=== PATIENT | male | born 1945 | race Caucasian/White ===

== ENCOUNTER 2021-01-16 19:01 | Emergency (ER) | payer MEDICARE, BC ==
--- NOTE | 2021-01-16 19:49 | EDM.PDOC ---
ED HPI GENERAL MEDICAL PROBLEM - General Chief Complaint: Cardiovascular Problem Stated Complaint: POSSIBLE AFIB Time Seen by Provider: 01/16/21 19:37 Source of Information: Reports: Patient History Limitations: Reports: No Limitations - History of Present Illness INITIAL COMMENTS - FREE TEXT/NARRATIVE: Scotty is a 75-year-old male presenting to the ED for evaluation of atrial fibrillation. The patient has a history of paroxysmal atrial fibrillation and is on Xarelto. He states that he was checking his blood pressure tonight and he noticed that his heart rate was in the 120s and felt irregular prompting him to come in for evaluation. He denies any other symptoms including lightheadedness, shortness of breath, chest pain, diaphoresis, nausea or vomiting. Patient does report that he took his blood pressure this morning and it was normal but he was not clear on whether or not his heart rate was normal at that time. 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 The patient has been on Xarelto for the last 5 years since his previous episode of atrial fibrillation. denies pain Pain Score (Numeric/FACES): 0 - Related Data Allergies Allergy/AdvReac Type Severity Reaction Status Date / Time No Known Allergies Allergy Verified 01/16/21 19:26 Home Meds: Home Meds Diltiazem HCl [Diltiazem 24Hr ER] 120 mg PO DAILY 30 Days #30 cap.er.24h 01/16/21 [Rx] Ergocalciferol (Vitamin D2) [Vitamin D2] 1.25 mg PO WEEKLY 01/16/21 [History] Labetalol [Normodyne] 200 mg PO BID 01/16/21 [History] Lactobacillus Acidophilus [Probiotic Acidophilus] 3 tab PO DAILY 01/16/21 [History] NIFEdipine [Nifedipine ER] 60 mg PO BEDTIME 01/16/21 [History] Rivaroxaban [Xarelto] 20 mg PO BEDTIME 01/16/21 [History] Valsartan 160 mg PO DAILY 01/16/21 [History] Zinc Gluconate [Zinc] 15 mg PO DAILY 01/16/21 [History] ED ROS GENERAL - Review of Systems Review Of Systems: See Below Constitutional: Reports: No Symptoms HEENT: Reports: No Symptoms Respiratory: Reports: No Symptoms Cardiovascular: Reports: Lightheadedness, Palpitations Endocrine: Reports: No Symptoms GI/Abdominal: Reports: No Symptoms : Reports: No Symptoms Musculoskeletal: Reports: No Symptoms Skin: Reports: No Symptoms Neurological: Reports: No Symptoms Psychiatric: Reports: No Symptoms Hematologic/Lymphatic: Reports: No Symptoms Immunologic: Reports: No Symptoms ED EXAM, GENERAL - Physical Exam Exam: See Below Exam Limited By: No Limitations General Appearance: Alert, WD/WN, No Apparent Distress Eye Exam: Bilateral Eye: EOMI, PERRL Head: Atraumatic, Normocephalic Neck: Normal Inspection, Supple, Non-Tender, Full Range of Motion. No: Carotid Bruit Respiratory/Chest: No Respiratory Distress, Lungs Clear, Normal Breath Sounds Cardiovascular: Normal Peripheral Pulses, No Edema, Tachycardia, Irregularly Irregular Peripheral Pulses: 2+: Radial (L), Radial (R) GI/Abdominal: Normal Bowel Sounds, Soft, Non-Tender Extremities: Normal Inspection, Normal Range of Motion, Non-Tender, No Pedal Edema Neurological: Alert, Oriented, Normal Cognition, No Motor/Sensory Deficits Psychiatric: Normal Affect, Normal Mood Skin Exam: Warm, Dry, Intact, Normal Color Lymphatic: No Adenopathy #1 Interpretation EKG Date: 01/16/21 Time: 19:21 Rhythm: A-Fib Rate (Beats/Min): 122 P-Wave: Absent QRS: Normal ST-T: Normal QT: Normal Comparison: NA - No Prior EKG Course - Vital Signs Last Recorded V/S: Last Vital Signs Temp 36.4 C 01/16/21 19:27 Pulse 117 H 01/16/21 20:24 Resp 13 01/16/21 20:24 BP 123/73 01/16/21 20:24 Pulse Ox 96 01/16/21 20:24 - Orders/Labs/Meds Orders: Active Orders 24 hr Category Date Time Status EKG Documentation Completion [RC] ASDIRECTED Care 01/16/21 19:07 Active Sodium Chloride 0.9% [Saline Flush] Med 01/16/21 20:04 Active 10 ml FLUSH ASDIRECTED PRN Saline Lock Insert [OM.PC] Routine Oth 01/16/21 20:04 Ordered EKG 12 Lead [EK] Routine Ther 01/16/21 19:03 Ordered Medication Orders Sodium Chloride (Sodium Chloride 0.9% 10 Ml Syringe) 10 ml FLUSH ASDIRECTED PRN PRN Reason: Keep Vein Open Last Admin: 01/16/21 20:13 Dose: 10 ml Documented by: CHANG Labs: Laboratory Tests 01/16/21 01/16/21 01/16/21 Range/Units 19:22 19:22 19:22 WBC 9.4 (4.5-11.0) K/uL RBC 4.62 (4.30-5.90) M/uL Hgb 15.2 H (12.0-15.0) g/dL Hct 44.2 (40.0-54.0) % MCV 96 (80-98) fL MCH 33 H (27-31) pg MCHC 34 (32-36) % Plt Count 226 (150-400) K/uL Neut % (Auto) 61 (36-66) % Lymph % (Auto) 24 (24-44) % Foster % (Auto) 13 H (2-6) % Eos % (Auto) 1 L (2-4) % Baso % (Auto) 2 H (0-1) % PT 12.3 H (9.5-12.0) sec INR 1.13 (0.80-1.20) APTT 30.7 (27.0-36.0) sec Sodium 141 (140-148) mmol/L Potassium 5.2 (3.6-5.2) mmol/L Chloride 106 (100-108) mmol/L Carbon Dioxide 25 (21-32) mmol/L Anion Gap 10.4 (5.0-14.0) mmol/L BUN 30 H (7-18) mg/dL Creatinine 1.5 H (0.8-1.3) mg/dL Est Cr Clr Drug Dosing 43.86 mL/min Estimated GFR (MDRD) 46 L (>60) Glucose 87 (74-106) mg/dL Calcium 9.2 (8.5-10.1) mg/dL Total Bilirubin 0.4 (0.2-1.0) mg/dL AST 23 (15-37) U/L ALT 31 (12-78) U/L Alkaline Phosphatase 50 (46-116) U/L Troponin I < 0.017 (0.000-0.056) ng/mL Total Protein 7.4 (6.4-8.2) g/dL Albumin 3.8 (3.4-5.0) g/dL Globulin 3.6 H (2.3-3.5) g/dL Albumin/Globulin Ratio 1.1 L (1.2-2.2) TSH, Ultra Sensitive 1.581 (0.358-3.740) uIU/mL Meds: Medications Generic Name Dose Route Start Last Admin Trade Name Freq PRN Reason Stop Dose Admin Sodium Chloride 10 ml 01/16/21 20:04 01/16/21 20:13 Sodium Chloride 0.9% 10 Ml Syringe FLUSH 10 ml ASDIRECTED PRN Administration Keep Vein Open Discontinued Medications Generic Name Dose Route Start Last Admin Trade Name Freq PRN Reason Stop Dose Admin Diltiazem HCl 20 mg 01/16/21 20:04 01/16/21 20:28 Diltiazem 25 Mg/5 Ml Sdv IVPUSH 01/16/21 20:05 20 mg ONETIME ONE Administration - Re-Assessments/Exams Free Text/Narrative Re-Assessment/Exam: 01/16/21 21:32 he was established and the patient was given diltiazem 20 mg IV push with fairly rapid onset of reduction with heart rate begin between 70 and 82 bpm. Patient was observed for an hour but still remained in atrial fibrillation with his rate controlled. His blood pressure was suitable at 116/71. After over an hour his heart rate is gone up into the 90s and his blood pressure is 140/78 now. We will repeat the diltiazem 20 mg IV push to see if this helps convert him. If not, my plan is to put him on diltiazem ED 120 milligram and have him follow-up with his cvt rn or internal medicine doctor as you will likely need an echocardiogram and further evaluation. His blood work is unremarkable for any significant findings except for GFR of 46 and a creatinine of 1.5. This is a known entity and is followed by a insurance sales manager from [place] who has been managing his kidney function and hypertension. 01/16/21 22:03 patient underwent a second dose of diltiazem 20 mg IV push and again had a fairly rapid decrease in heart rate into the 50s and 60s. His blood pressure remained stable at 118/69. It still appears that he is in atrial fibrillation although his rate is well controlled at this point. My plan is to discharge him on Cardizem CD 120 mg daily. I had like him to follow-up with his primary care provider in [place] as you will likely need to have an echocardiogram and they can determine from that what area of cardiology may be needed to refer to. As the patient is relatively asymptomatic and already anticoagulated with Xarelto, I do not feel the need to hospitalize him. He did not convert with the 2 doses of diltiazem, however, he may still convert in the next 24 hours. We will continue rate control with the diltiazem until he follows up. Indications to return to the ED were discussed and the patient was suitable for discharge in satisfactory condition. Departure - Departure Time of Disposition: 22:58 Disposition: Home, Self-Care 01 Clinical Impression: Paroxysmal atrial fibrillation with RVR Instructions: Atrial Fibrillation, [id number] Referrals: PCP,None [Primary Care Provider] - Forms: ED Department Discharge Care Plan Goals: I am providing you with a prescription for diltiazem CD 120 mg daily. Please fill this in the morning and take 1 daily. This will provide you with rate control. I would recommend you follow-up with your power operator when you return to [place] as you will likely need to have an echocardiogram to further evaluate for the cause of atrial fibrillation. Your blood work today did not show any significant abnormalities except for your chronic kidney disease with your GFR being 46. Continue with the Xarelto as before. Return to the ED for evaluation should you develop any significant dizziness, lightheadedness, shortness of breath, or chest pain. Sepsis Event Note (ED) - Evaluation Sepsis Screening Result: No Definite Risk - Focused Exam Vital Signs: Vital Signs Temp Pulse Resp BP Pulse Ox 01/16/21 20:24 117 H 13 123/73 96 01/16/21 19:46 109 H 14 117/83 98 01/16/21 19:27 36.4 C 116 H 15 130/94 H 99 01/16/21 19:26 36.4 C 116 H 15 130/94 H 99 - Problem List & Annotations (1) Paroxysmal atrial fibrillation with RVR SNOMED Code(s): 0060779764 Code(s): I48.0 - PAROXYSMAL ATRIAL FIBRILLATION Status: Acute Priority: High Current Visit: Yes - Problem List Review Problem List Initiated/Reviewed/Updated: Yes - My Orders Last 24 Hours: My Active Orders 01/16/21 19:03 EKG 12 Lead [EK] Routine 01/16/21 19:07 EKG Documentation Completion [RC] ASDIRECTED 01/16/21 20:04 Sodium Chloride 0.9% [Saline Flush] 10 ml FLUSH ASDIRECTED PRN Saline Lock Insert [OM.PC] Routine - Assessment/Plan Last 24 Hours: My Active Orders 01/16/21 19:03 EKG 12 Lead [EK] Routine 01/16/21 19:07 EKG Documentation Completion [RC] ASDIRECTED 01/16/21 20:04 Sodium Chloride 0.9% [Saline Flush] 10 ml FLUSH ASDIRECTED PRN Saline Lock Insert [OM.PC] Routine
[2021-01-16] MEDS ORDERED: Diltiazem 25 MG/5 ML SDV IVPUSH ONE ×2 (20:04→21:54)
[2021-01-16] MEDS ORDERED: Sodium Chloride 0.9% 10 ML Syringe FLUSH PRN (20:04)
== END 2021-01-16 23:58 | disposition home or self-care (01) ==
LOC: JP.ED 19:01
DX: I48.0 Paroxysmal atrial fibrillation (principal); Z79.01 Long term (current) use of anticoagulants; Z79.899 Other long term (current) drug therapy
CPT/HCPCS: 36415; 80053; 84443; 84484; 85025; 85610; 85730; 93005; 96374; 96376; 99285; J3490